=== PATIENT | female | born 1955 | race Caucasian/White ===

== ENCOUNTER 2022-11-08 10:00 | Outpatient (CLI) | payer MEDICARE, BC, SELFPAY ==
--- NOTE | 2022-11-08 10:15 | CRLHL7_ITS ---
For Patients: As a result of the Century Cures Act, medical imaging exams and procedure reports are released immediately into your electronic medical record. You may view this report before your referring provider. If you have questions, please contact your health care provider. BILATERAL SCREENING MAMMOGRAM WITH COMPUTER-AIDED DETECTION AND TOMOSYNTHESIS TECHNIQUE: CC and MLO views were obtained. These mammographic images have been obtained using full-field digital technique. These mammographic images were interpreted with the benefit of computer-aided detection. Breast Tomosynthesis was used in this interpretation. COMPARISON FILM: 09/14/2021, 08/11/2020, 07/30/2019 FINDINGS: There are scattered areas of fibroglandular density IMPRESSION: There is no radiographic evidence for malignancy. ASSESSMENT: BI-RADS Category 2: Benign RECOMMENDATION: Routine screening mammogram in 1 year. A lay language report of this examination will be provided to the patient. Jarvis Sales M.D. Diagnostic Radiologist [email or web address] LUIS/ebonie Transcribed: 1:55 p.mNic loomis/Dictated by: Jarvis Sales MD @ 11/08/2022 12:12:00 PM (Electronically Signed)
== END 2022-11-08 10:01 | disposition home or self-care (01) ==
PROVIDERS: PCP Family Medicine; Visit Provider Family Medicine
DX: Z12.31 Encounter for screening mammogram for malignant neoplasm of breast (principal)
CPT/HCPCS: 77063; 77067

== ENCOUNTER 2022-11-21 08:16 | Outpatient (CLI) | payer MEDICARE, BC, SELFPAY | END 2022-11-21 08:17 | disposition home or self-care (01) | LOC: NFLDREF 11-22 12:14 | PROVIDERS: PCP Family Medicine; Referring Provider Family Medicine; Visit Provider Family Medicine | DX: Z00.00 Encounter for general adult medical examination without abnormal findings (principal); E78.5 Hyperlipidemia, unspecified; M85.80 Other specified disorders of bone density and structure, unspecified site; Z13.1 Encounter for screening for diabetes mellitus | CPT/HCPCS: 80061; 82306; 82947 ==

== ENCOUNTER 2022-12-07 13:09 | Outpatient (CLI) | payer MEDICARE, BC, SELFPAY ==
--- NOTE | 2022-12-07 13:30 | CRLHL7_ITS ---
For Patients: As a result of the Century Cures Act, medical imaging exams and procedure reports are released immediately into your electronic medical record. You may view this report before your referring provider. If you have questions, please contact your health care provider. DXA BONE MINERAL DENSITY STUDY Reason for exam: Osteopenia. Current height (in): 69. Weight (lb): 168. Menopause age: 57. Ethnicity: White. 1. Have you had a previous hip or vertebral fracture? No. 2. Have you had any fractures during your adult life which did not result from significant trauma (e.g., auto accident)? No. 3. Did either of your parents have a hip fracture? No. 4. Do you smoke? No. 5. Have you ever taken Glucocorticoids? No. 6. Do you have rheumatoid arthritis? No. 7. Do you have secondary osteoporosis? No. 8. Do you drink 3 or more alcoholic drinks per day? No. 9. Are you being treated for osteoporosis? No. 10. Have you ever taken any of the following medications: Actonel, Evista, Fosamax, Miacalcin, Reclast, Boniva, Forteo, HRT (i.e., estrogen/hormone therapy), Protelos, Prolia, Vitamin D, Calcium, other ??? please specify. ANSWER: Yes, calcium. 11. Do you have any of the following medical conditions: Anorexia or bulimia, asthma or emphysema, end stage renal disease, hyperparathyroidism, any seizure disorders, cancer, inflammatory bowel diseases, hysterectomy, other ??? please specify. ANSWER: No. 12. What was your maximum height (inches)? 69. 13. Do you perform weight bearing exercise regularly? No. 14. Do you regularly consume dairy products? Yes. 15. Do you drink caffeinated beverages? Yes. If female: 16. At what age did your period start? 12. 17. Are you premenopausal? No. 18. How many full-term pregnancies have you had? 2. 19. Have you ever missed your period for more than 6 months in a row (not including or menopause)? No. TECHNIQUE: Bone mineral density study was performed using the [employer]. FINDINGS: The results of the study expressed as bone mineral density (BMD) are as follows: Lumbar spine L1 to L2: BMD: 0.912 g/cm2. T-score: -0.6. Z-score: 1.3 Neck Left: BMD: 0.670 g/cm2. T-score: -1.6. Z-score: 0.1 Right: BMD: 0.656 g/cm2. T-score: -1.7. Z-score: 0.0 Total Left: BMD: 0.836 g/cm2. T-score: -0.9. Z-score: 0.5 Right: BMD: 0.809 g/cm2. T-score: -1.1. Z-score: 0.3 IMPRESSION: Osteopenia. *Comparison exams done prior to 02/2020 were performed on different unit, [employer]. COMPARISON: Compared with scan of 08/19/2020, the bone mineral density has increased by 2.9 percent at the spine and decreased by 1.2 percent at the hip. FRAX 10-year Fracture Risk Major Osteoporotic Fracture: 10% Hip Fracture: 1.6% Reported Risk Factors: [place] () Neck BMD=-0.656, BMI= 24.8 Jarvis Sales M.D. Diagnostic Radiologist [email or web address] LUIS/ebonie loomis/Dictated by: Jarvis Sales MD @ 12/08/2022 10:03:00 AM (Electronically Signed)
== END 2022-12-07 13:10 | disposition home or self-care (01) ==
LOC: RAD 13:10
PROVIDERS: PCP Family Medicine; Visit Provider Family Medicine
DX: M85.80 Other specified disorders of bone density and structure, unspecified site (principal); M85.89 Other specified disorders of bone density and structure, multiple sites; I34.1 Nonrheumatic mitral (valve) prolapse; I34.0 Nonrheumatic mitral (valve) insufficiency; Z78.0 Asymptomatic menopausal state
CPT/HCPCS: 77080; 93306

== ENCOUNTER 2023-01-09 08:00 | Outpatient (RCR) | payer MEDICARE, BC, SELFPAY ==
--- NOTE | 2022-11-28 08:42 | PT.OPEX ---
Please review and sign the attached physical therapy evaluation completed on 11/28/22. Thank you. PT [place] Outpatient Eval PT [facility] Outpatient Eval Start: 11/25/22 10:39 Freq: Status: Active Protocol: Document 11/28/22 07:18 TLQ (Rec: 11/28/22 08:36 TLQ [id number]) E-signed By Angi Huff DPT Physical Therapy Outpatient Evaluation Insurance Information Recert Due Date 02/26/23 Insurance Name Medicare B,[employer] Medical Diagnosis Pain in left shoulder (M25.512 ) Treating Diagnosis Pain in left shoulder (M25.512 ) Muscle weakness (M62.81) Referring MD Marie Subjective Subjective Goes to [place] every winter, noticed pain in her left shoulder that started about 6 weeks ago, doesn't remember any specific injuries just came on randomly. Has never had shoulder pain. Pain is present throughout the day, worsens with any kind of movement - turning her arm or reaching. Has not tried any heat or ice, will occasionally take Tylenol to help sleep at night. Prefers to sleep on her left side, wakes up frequently due to pain in her left arm, states she wasn't a great sleeper prior to the pain but notices an increased frequency in sleep disturbance . Is trying to do many tasks one-handed, feels like her left arm has gotten weaker. 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 Has not had any imaging taken of her left shoulder. Pain Comments 3-12/12 Current Work Status Retired Precautions Therapy Limitations/Systems Review Not Limited Objective Strength Shoulder strength: flexion L 4+, R 5 abduction L 4 pain, R 5 internal rotation L 4- pain, R 5 external rotation L 3+ pain, R 5 Elbow: flexion L 4 pain, R 5 extension L 4 pain, R 5 Other/Pertinent Objective L shoulder AROM: flexion 137 degrees abduction 92 degrees, pinching in anterolateral L shoulder internal rotation T10 pain external rotation T3 pain TTP on L: proximal biceps, supraspinatus muscle belly/ insertion, infraspinatus Joint mobility: normal GH mobility bilaterally Special tests: May[place]-Sal (-) on L Neer impingement test (-) on L Speed's test (+) on L for pain Rangeley's active compression ( SLAP) test (-/+) Empty can test (+) on L for pain Drop arm test not tested on L due to ROM limitations Lift-off test (+) for pain on L Functional Test Performed & Score SPADI: 55/130 (MDC: 13 points) pain 46% disability 41% Assessment Assessment/Impression Faustino is a 67 year old woman who presents to physical therapy today with left shoulder pain of 6 weeks duration. Symptoms have resulted in limited left shoulder AROM and mild weakness of the left upper extremity. At the time of today's evaluation symptoms are likely related to rotator cuff pathology due to pain with resistive testing, tenderness to palpation of supraspinatus and infraspinatus, and positive special tests for subscap and supraspinatus irritation. Patient was also tender with palpation of proximal biceps, special tests for impingement were negative, positive for pain with resisted supination. Faustino tolerated shoulder AAROM and gentle rotator cuff isometrics today, positive response to initial PT interventions. Based on today' s examination findings, Faustino will benefit from skilled PT interventions to decrease tissue irritation, improve AROM, and increase left shoulder strength to return to PLOF. Primary Functional Limitations L shoulder AROM, overhead reaching, lifting, L shoulder weakness Plan of Care Rehabilitation Potential Good Physical Therapy Goals In 3-4 visits: - Left shoulder flexion AROM will improve by >5 degrees to allow Faustino to reach overhead with minimal pain. - Left shoulder abduction AROM will improve by >10 degrees. - Patient will decrease subjective report of pain from 4/10 to <2/10 for improved quality of sleep. In 6-8 visits: - Left shoulder AROM will improve to be WFL for improved mobility needed to complete daily self-cares. 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 - Faustino will adhere to HEP to successfully manage symptoms IND at home. Treatment Plan/Direct Interventions Electrical Stimulation,Ice/ Cold/Vasopneumatic,Joint Mobilization,Manual Therapy, Neuromuscular Re-ed,Self-Care/ Home Management,Therapeutic Activities,Therapeutic Exercises Frequency/Duration 1x/week for 8 weeks Patient Will Be Discharged From Therapy Completion of LTG(s),Skills Plateau,Independent w/HEP, Independently Progressing Evaluation Billing Untimed Code Treatment Minutes 28 Complexity Low Certification Information Initial Certification Date 11/28/22 Ending Certification Date 02/26/23 Provider Signature Shows Agreement With POC & Medical Necessity Physician Signature & Date Requested Please Sign/Date Here Physician Comment/Change : Physician NPI Number #
== END 2023-02-17 15:21 | disposition home or self-care (01) ==
PROVIDERS: PCP Family Medicine; Visit Provider Family Medicine
DX: M25.512 Pain in left shoulder (principal); Z51.89 Encounter for other specified aftercare
CPT/HCPCS: 97110; 97140; 97161

== ENCOUNTER 2023-11-14 10:02 | Outpatient (CLI) | payer MEDICARE, BC, SELFPAY ==
--- NOTE | 2023-11-14 10:15 | MM_ITS ---
Patient: HANNA EDMONDSON Facility:?[facility] Patient ID:?[id number] Site Patient ID:?[id number]. Site :?[id number] Study:?XRay-Breast Bilateral 3D W/CAD-11/14/2023 10:32:21 AM Ordering Physician:Simona Final Report: BILATERAL SCREENING MAMMOGRAM WITH COMPUTER-AIDED DETECTION AND TOMOSYNTHESIS TECHNIQUE: CC and MLO views were obtained. These mammographic images have been obtained using full-field digital technique. These mammographic images were interpreted with the benefit of computer-aided detection. Breast Tomosynthesis was used in this interpretation. COMPARISON FILM: 11/08/22, 09/14/21, 08/11/20. FINDINGS: There are scattered areas of fibroglandular density IMPRESSION: There is no radiographic evidence for malignancy. ASSESSMENT: BI-RADS Category 2: Benign RECOMMENDATION: Routine screening mammogram in 1 year. A lay language report of this examination will be provided to the patient. Jarvis Sales M.D. Diagnostic Radiologist [email or web address] LUIS/oren / be/Dictated by: Jarvis Sales MD @ 11/14/2023 11:05:00 AM Signed by:?Jarvis Sales MD @11/14/2023 4:21:09 PM (Electronic Signature)
== END 2023-11-14 10:03 | disposition home or self-care (01) ==
LOC: MAMMO 10:02
PROVIDERS: PCP Family Medicine; Visit Provider Family Medicine
DX: Z12.31 Encounter for screening mammogram for malignant neoplasm of breast (principal)
CPT/HCPCS: 77063; 77067

== ENCOUNTER 2023-11-24 08:25 | Outpatient (CLI) | payer MEDICARE, BC, SELFPAY | END 2023-11-24 08:26 | disposition home or self-care (01) | LOC: NFLDREF 11-27 06:50 | PROVIDERS: PCP Family Medicine; Referring Provider Family Medicine; Visit Provider Family Medicine | DX: E78.5 Hyperlipidemia, unspecified (principal); M85.80 Other specified disorders of bone density and structure, unspecified site; Z13.228 Encounter for screening for other metabolic disorders | CPT/HCPCS: 80053; 80061; 82306 ==

== ENCOUNTER 2024-09-09 08:30 | Outpatient (RCR) | payer MEDICARE, BC, SELFPAY | END 2025-01-07 23:59 | disposition home or self-care (01) | PROVIDERS: PCP Family Medicine; Visit Provider Family Medicine | DX: M54.2 Cervicalgia (principal); Z51.89 Encounter for other specified aftercare | CPT/HCPCS: 97110; 97140; 97162 ==

== ENCOUNTER 2024-11-11 08:13 | Outpatient (CLI) | payer MEDICARE, BC, SELFPAY | END 2024-11-11 08:14 | disposition home or self-care (01) | LOC: NFLDREF 11-12 08:14 | PROVIDERS: PCP Family Medicine; Referring Provider Family Medicine; Visit Provider Family Medicine | DX: E78.5 Hyperlipidemia, unspecified (principal); R73.01 Impaired fasting glucose; M85.80 Other specified disorders of bone density and structure, unspecified site; M81.0 Age-related osteoporosis without current pathological fracture | CPT/HCPCS: 80061; 82306; 82947 ==

== ENCOUNTER 2024-11-28 13:44 | Outpatient (CLI) | payer MEDICARE, BC, SELFPAY ==
--- NOTE | 2024-11-28 14:00 | CRLHL7_ITS ---
For Patients: As a result of the Century Cures Act, medical imaging exams and procedure reports are released immediately into your electronic medical record. You may view this report before your referring provider. If you have questions, please contact your health care provider. BILATERAL SCREENING MAMMOGRAM WITH COMPUTER-AIDED DETECTION AND TOMOSYNTHESIS TECHNIQUE: CC and MLO views were obtained. These mammographic images have been obtained using full-field digital technique. These mammographic images were interpreted with the benefit of computer-aided detection. Breast Tomosynthesis was used in this interpretation. COMPARISON FILM: 11/14/23, 11/08/22, 09/14/21. FINDINGS: The breasts are heterogeneously dense, which may obscure small masses. IMPRESSION: There is no radiographic evidence for malignancy. ASSESSMENT: BI-RADS Category 2: Benign RECOMMENDATION: Routine screening mammogram in 1 year. A lay language report of this examination will be provided to the patient. Jarvis Sales M.D. Diagnostic Radiologist [email or web address] SP/Dictated by: Jarvis Sales MD @ 12/04/2024 12:40:00 PM (Electronically Signed)
== END 2024-11-28 13:45 | disposition home or self-care (01) ==
LOC: MAMMO 13:44
PROVIDERS: PCP Family Medicine; Visit Provider Family Medicine
DX: Z12.31 Encounter for screening mammogram for malignant neoplasm of breast (principal); R92.333 Mammographic heterogeneous density, bilateral breasts
CPT/HCPCS: 77063; 77067

== ENCOUNTER 2025-03-18 15:26 | Outpatient (CLI) | payer MEDICARE, BC, SELFPAY ==
[2025-03-18 16:00] LABS: Creatinine* 0.9 mg/dL (0.5-1.5); Estimated Glomerular Filt Rate 69 ml/min
--- NOTE | 2025-03-18 16:00 | CRLHL7_ITS ---
For Patients: As a result of the Century Cures Act, medical imaging exams and procedure reports are released immediately into your electronic medical record. You may view this report before your referring provider. If you have questions, please contact your health care provider. INDICATION: Right neck mass and swelling. COMPARISON: None. TECHNIQUE: CT soft tissue neck with IV contrast. IC V2 70, GRETCHEN cc IV. FINDINGS: A marker is not present on the progressive assembler and fitter or acquired CT images to further localize the right sided neck mass. No asymmetric soft tissue swelling of the neck, particularly on the right. Normal bilateral parotid and submandibular glands. Normal thyroid gland. Scattered small normal-sized cervical lymph nodes bilaterally. No supraclavicular superior mediastinal adenopathy. Nasopharynx and oropharynx are clear. No inflammation within the paravertebral fat pads or retropharyngeal space. Normal thickness of the epiglottis. Normal glottis with symmetric vocal cords. Small 5 millimeter pulmonary nodule of the left lower lobe superior segment (series 3, image 89). Remainder of the lung apices are clear. Normal alignment the cervical spine. No prevertebral soft tissue swelling. Cervical spondylosis. Visualized paranasal sinuses and mastoid air cells are unremarkable. IMPRESSION: 1. No asymmetric soft tissue swelling of the neck, particularly on the right 2. No adenopathy. 3. Normal deep soft tissues of the neck. 4. Small 5 millimeter pulmonary nodule of the left lower lobe superior segment is indeterminate. Consider nonurgent interval follow-up with CT of the chest for further evaluation. 5. Cervical spondylosis Please note that all CT scans at this facility use dose modulation, iterative reconstruction, and/or weight-based dosing when appropriate to reduce radiation dose to as low as reasonably achievable. Dictated by Zaki Post MD @ 03/19/2025 12:22:51 PM (Electronically Signed)
== END 2025-03-18 15:27 | disposition home or self-care (01) ==
LOC: CT 15:28
PROVIDERS: PCP Family Medicine; Visit Provider Family Medicine
DX: R22.1 Localized swelling, mass and lump, neck (principal); R91.8 Other nonspecific abnormal finding of lung field; M47.892 Other spondylosis, cervical region
CPT/HCPCS: 36415; 70491; 82565; Q9967

== ENCOUNTER 2025-05-06 09:00 | Outpatient (RCR) | payer MEDICARE, BC, SELFPAY ==
--- NOTE | 2025-04-02 16:15 | PT.OPEX ---
PT [place] Outpatient Eval PT [facility] Outpatient Eval Start: 04/02/25 12:56 Freq: Status: Active Protocol: Document 04/02/25 12:56 VMS (Rec: 04/02/25 16:12 S [id number]) E-signed By Jina Ambrose Physical Therapy Outpatient Evaluation Insurance Information Recert Due Date 06/25/25 Insurance Name Medicare B Medical Diagnosis Cervicalgia Treating Diagnosis Neck pain Impaired ROM Muscular weakness Referring MD Marie Subjective Subjective April 02 2025 : Faustino is a 69 year F with complaints of R sided neck pain. Date of onset: June. Was seen for 2 appointments in September and then went to [place] for 6/ 7 weeks. Aggravating Factors: Reading, forward flexion of the head, rotating to the R Easing Factors: Walking, hot pad, Advil/Tylenol, keeping neck in neutral Method of Injury: Insidious Radiation: Denies Numbness / Tingling: Denies Progression: better Falls: denies Activity: gardening (1/2 day); walking -- 45 min walking; mows the lawn (takes about an hour) History of Neck Injuries: Denies Sleep: Able to sleep now. Was waking her up in the night but she still does not turn her head to roll over in anticipation that it is going to hurt. Review of Systems: History obtained from chart review, health history form, and the patient. I am only responding to those symptoms which are directly relevant to my consultation. Recommend the patient follow up with their primary/referring provider for other symptoms. Pain Comments Pain Location/Type: R sided posterior neck. Points to upper trap region Current: 0/10 Worst: 4-5/10 Current Work Status Retired Objective Other/Pertinent Posture/Observation: Unremarkable Objective Palpation: TTP in upper trap and levator scapulae bilaterally. No tenderness in SCM, at AC joint A/PROM: Flexion: 45 deg Sidebend L: 40 deg Sidebend R: 35 deg 3-4/10 Rot L: 70 deg Rot R: 58 deg Extension: 52 deg JPA: 1st Rib: Stiff on the R Strength: Shoulder: Flex: 4/5 bilat Abd: 5/5 bilat IR: 5/5 bilat ER: 5/5 bilat Neck: Deep neck flexor endurance test: 11 sec Muscle Length: Scalenes: WFL bilat SCM: WFL bilat Upper Trap: tightness bilaterally Levator Scapulae: tightness bilaterally Pec Minor: WFL Pec Major: WFL Lats: Not assessed today Biceps: Not assessed today Triceps: Not assessed today Functional Test NDI: Not today Performed & Score Assessment Assessment/ 2025-04-02: Initial Evaluation Assessment & PT Impression Impression: Fautsino is a pleasant 69 year female presenting to outpatient physical therapy with primary complaint of R -sided neck pain. Pertinent physical examination findings include bilateral tightness in upper trapezius and levator scapulae, limited R sidebending, and impaired deep neck flexor endurance. Functionally, the patient is limited in activities including reading/ positions of neck flexion for prolonged periods of time , rotation to the right. She requires skilled physical therapy in order to address the above impairments, improve patients symptom status, and assist her in returning to her prior level of function. Barriers to Learning: None Primary Functional reading, flexion of the neck, anything with rotation to Limitations the R Plan of Care Rehabilitation Good Potential Physical Therapy STG: Goals 1. Patient will be independent with HEP by the end of 4 weeks. 2. Patient will demonstrate improvement in deep neck flexor endurance test to at least 20 seconds by the end of 4 weeks to demonstrate improved overall function. LT. Patient will demonstrate at least 5.5 point increase (MCID) in NDI score by the end of 8 weeks to demonstrate improved overall function. 2. Patient will be able to read for at least 30 minutes without greater than 2/10 pain by the end of 8 weeks. 3. Patient will be increase deep neck flexor endurance to at least 30 sec by the end of 8 weeks to demonstrate improved overall function. Coordination/ Referral Source Communication With Treatment Plan/ Joint Mobilization,Manual Therapy,Neuromuscular Re-ed, Direct Interventions Therapeutic Activities,Therapeutic Exercises Frequency/Duration 1x/week Patient Will Be Completion of LTG(s),Independent w/HEP,Independently Discharged From Progressing Therapy Evaluation Billing Untimed Code 30 Treatment Minutes Complexity Low Certification Information Initial 04/02/25 Certification Date Ending Certification 06/25/25 Date Provider Signature Yes Required Provider Signature POC & Medical Necessity Shows Agreement With Physician NPI Number Write NPI# Here Physician Comment/ : Change Physician Signature Please Sign/Date Here & Date Requested
== END 2025-07-18 08:41 | disposition home or self-care (01) ==
PROVIDERS: PCP Family Medicine; Visit Provider Family Medicine
DX: M54.2 Cervicalgia (principal); Z51.89 Encounter for other specified aftercare
CPT/HCPCS: 97110; 97140; 97161